=== PATIENT | female | born 1990 | race Caucasian/White ===

== ENCOUNTER 2024-04-28 15:57 | Emergency (ER) | payer OTHER, MEDICAID, SELFPAY ==
[2024-04-28] VITALS (11 sets, daily range): BP systolic 113–130; BP diastolic 80–97; PULSE 67–92; RESP 11–19; TEMP 36.1; O2SAT 97–100
--- NOTE | ~2024-04-28 | CT_ITS ---
CTA chest PE protocol Ordering provider: Gabrielle López MD History: 34 years Female with . CP; occas SOB; post ; elev dimer . Comparison: None. Technique: CT angiogram chest was performed following timed intravenous injection of contrast. Thin s lice axial images and reformatted coronal images were obtained. Three dimensional reformatted images of the chest were also obtained using a [employer] [place] workstation. . Automated exposure control and iterati ve reconstruction technique were employed. The dose-length product was 397.81 mGy-cm. 100 mL Omnipaqu e 350 were given IV. Findings: PULMONARY ARTERIES: No pulmonary embolus. VISUALIZED THORACIC INLET: Normal. MEDIASTINUM: Aorta/coronary arteries: Mild atheromatous disease. Heart/other: The heart is not enlarged. Minimal areas seen in the right ventricle and pulmonary kai ry. Lymph nodes: No mediastinal or hilar adenopathy. LUNGS: No pulmonary nodules or masses. No infiltrates or effusions. No pneumothorax. . Granuloma seen in the middle lobe. VISUALIZED UPPER ABDOMEN: Cholelithiasis. Benign calcifications of the spleen. Separate origin of the celiac and splenic arteries from the aorta. Otherwise, the visualized upper abdomen is normal. MUSCULOSKELETAL: Soft tissues: The superficial soft tissues are normal. Bones: Age appropriate degenerative changes of the spine. IMPRESSION: No pulmonary embolism. No acute cardiopulmonary pathology. Cholelithiasis. Reviewed, dictated and finalized at location A.
--- NOTE | ~2024-04-28 | XR_ITS ---
EXAMINATION: XR chest 2V DATE: 04/28/2024 16:26 INDICATION: Vomiting. Diaphoresis. TECHNIQUE: Frontal and lateral views of the chest were obtained. COMPARISON: None. FINDINGS: There is no pneumonia, pleural effusion, or pneumothorax. The heart size is normal. IMPRESSION: 1. No acute cardiopulmonary disease. Reviewed, dictated and finalized at location A.
--- NOTE | 2024-04-28 16:05 | ECG_ITS ---
Test Date: 2024-04-28 16:12:34 Measurements Intervals [place] Rate: 87 P: 54 OR: 144 QRS: 18 QRSD: 78 T: 6 QT: 355 QTc: 428 Interpretive Statements SINUS RHYTHM POSSIBLE LEFT ATRIAL ENLARGEMENT [-0.1mV P-WAVE IN V1/V2] NONSPECIFIC T-WAVE ABNORMALITY No previous ECG available for comparison Electronically Signed On 04-29-2024 13:24:14 CDT by Roman Cline M.D.
--- NOTE | 2024-04-28 16:14 | ED.NAVMDI ---
HPI - Nausea/Vomiting/Diarrhea General Chief complaint: Nausea/Vomiting/Diarrhea <KIERA Traylor Last Filed: 04/28/24 16:23> Stated complaint: N/V <KIERA Traylor Last Filed: 04/28/24 16:23> Time Seen by Provider: 04/28/24 16:14 <KIERA Traylor Last Filed: 04/28/24 16:23> Focused HPI: Patient is a 34 y/o female who presents to the ED via EMS with report of CP. Patient reports she was at home approx 30 minutes ago when she suddenly developed midsternal CP. States pain seemed to radiate down into her abdomen. She began feeling dizzy, sweaty, nauseous. She then had an episode of emesis. EMS was then called. Given zofran en route to the ED, nausea is improved currently. Does c/o slight CP still. Denies shortness of breath. Denies BLE pain and swelling. Patient is 8 weeks post . for twins. She saw Dr. Azul Sarah OBYUE/NICOLAS at [facility]. She had hx of severe preeclampsia. Still on nifedipine for BP. Does not take aspirin. GENERAL: Well-appearing, well-nourished, and in no acute distress. HEAD: Normocephalic, atraumatic. CHEST: Clear to auscultation. ?No respiratory distress. HEART: Regular rate and rhythm.? MSK: No chest wall tenderness ABD: No tenderness throughout abdomen. NEURO: ?Alert and oriented x3. Patient screened in triage and initial orders placed.? ?Additional care and disposition to be based upon?diagnostic testing and treatment. <KIERA Traylor Last Filed: 04/28/24 16:23> Source: patient <KIERA Traylor Last Filed: 04/28/24 16:23> Mode of arrival: EMS <KIERA Traylor Last Filed: 04/28/24 16:23> Limitations: no limitations <KIERA Traylor Last Filed: 04/28/24 16:23> History of Present Illness HPI Narrative: Agree with above the following additions: Rated the pain 7/10 severity but improved now. She notes occasional shortness of breath denies any around the time of this episode or currently. Marijuana use on social history. Subjective lower extremity edema. Patient felt like she might pass out but she did not have a syncopal episode. Patient denies any dysuria, hematuria urgency or frequency. <Gabrielle López MD - Last Filed: 04/29/24 16:34> Related Data Home medications: Home Medications Medication Instructions Recorded Confirmed loratadine 10 mg tablet 10 mg PO DAILY 04/28/24 04/28/24 nifedipine 30 mg tablet,extended 30 mg PO DAILY 04/28/24 04/28/24 release nifedipine 60 mg tablet,extended 60 mg PO HS 04/28/24 04/28/24 release sertraline 100 mg tablet (Zoloft) 150 mg PO DAILY 04/28/24 04/28/24 <Cat Conley PA-C - Last Filed: 04/28/24 16:23> Allergies/Adverse reactions: Allergies Allergy/AdvReac Type Severity Reaction Status Date / Time calamine Allergy Hives Verified 04/28/24 17:42 vancomycin Allergy Anaphylaxis Verified 04/28/24 17:42 codeine AdvReac Nausea and Verified 04/28/24 17:42 Vomiting <Cat Conley PA-C - Last Filed: 04/28/24 16:23> PMFSH Surgical History Surgical History: Surgical History (Updated 04/28/24 @ 21:01 by Gabrielle López MD) History of section 2023; twin males <Cat Conley PA-C - Last Filed: 04/28/24 16:23> Social History Social History: Social History (Updated 04/28/24 @ 21:01 by Gabrielle López MD) Social History: Participates in [employer] Living arrangements: with family Additional living arrangements comments: Twin sons Evonne and Johnson (born 2023). <Cat Conley PA-C - Last Filed: 04/28/24 16:23> Exam Narrative: GENERAL: Well-appearing, well-nourished, and in no acute distress. HEAD: Normocephalic, atraumatic. EYES: Non injected, non icteric ENT: Nares clear, no rhinorrhea or epistaxis. NECK: Supple. CHEST: Speaking in full sentences. No respiratory distress. HEART: Regular rate and
[2024-04-28 16:34] LABS: Basophils Absolute Auto 0.1 K/mm3 (0.0-0.1); Basophils Percent Auto 0.5 % (0.2-1.2); Eosinophils Absolute Auto 1.2 K/mm3 (0-0.3); Hematocrit 43.3 % (37.0-47.0); Hemoglobin 14.6 g/dL (12.0-15.0); Immature Granulocyte Absolute 0.09 K/mm3 (0.00-0.031); Immature Granulocyte Percent A 0.6 % (0-0.5); Lymphocytes Absolute Auto 3.82 K/mm3 (0.9-3.2); Lymphocytes Percent Auto 26.4 % (18.3-44.2); Mean Corpuscular HGB Conc 33.7 g/dl (32-36); Mean Corpuscular Hemoglobin 26.4 pg (26-34); Mean Corpuscular Volume 78.3 fl (80-100); Mean Platelet Volume 8.9 fl (7.4-10.4); Monocytes Absolute Auto 0.9 K/mm3 (0.1-0.6); Neutrophils Absolute Auto 8.5 K/mm3 (1.3-6.7); Neutrophils Percent Auto 58.5 % (45.5-73.1); Platelet Count Result 376 k/mm3 (150-375); Red Blood Count 5.53 M/mm3 (4.2-5.4); Red Cell Distribution Width 15.3 % (11.5-14.5); White Blood Count 14.5 K/mm3 (4.5-10.0)
[2024-04-28 16:46] LABS: Alanine Aminotransferase 32 U/L (6-35); Albumin Level 4.8 g/dL (3.5-5.1); Alkaline Phosphatase 102 U/L (38-126); Anion Gap 14 mmol/L (4-12); Aspartate Amino Transferase 35 U/L (14-36); Bilirubin,Total 0.5 mg/dL (0.2-1.3); Blood Urea Nitrogen 9 mg/dL (7-17); Calcium 9.7 mg/dL (8.4-10.2); Carbon Dioxide 19 mmol/L (22-30); Chloride 105 mmol/L (98-107); Estimated Glomerular Filt Rate > 60; Glucose 127 mg/dL (65-110); Lipase 532 U/L (23-300); Potassium 3.5 mmol/L (3.4-5.0); Sodium 138 mmol/L (137-145)
[2024-04-28 16:49] LABS: INR 0.9; Prothrombin Time 12.8 Seconds (11.1-14.7)
[2024-04-28 16:50] LABS: Partial Thromboplastin Time 26.4 Seconds (22.3-36.8)
[2024-04-28 16:56] LABS: NT Pro B Type Natriuretic Pept 42 pg/mL (19.9-100); Troponin I < 0.012 ng/mL (0.000-0.034)
[2024-04-28] MEDS: ASPIRIN 81 MG CHEWABLE TABLET 324 MG PO (18:16)
[2024-04-28] MEDS: BELLADONNA ALK/PHENOB ELIX 10 ML, MAG HYDROX/ALUMINUM HYD/SIMETH 30 ML, LIDOCAINE HCL 2... PO (18:17)
--- NOTE | 2024-04-28 18:40 | ECG_ITS ---
Test Date: 2024-04-28 18:44:07 Measurements Intervals [place] Rate: 74 P: 42 [place]: 143 QRS: 8 QRSD: 78 T: 6 QT: 392 QTc: 436 Interpretive Statements SINUS RHYTHM POSSIBLE LEFT ATRIAL ENLARGEMENT [-0.1mV P WAVE IN V1/V2] NONSPECIFIC T-WAVE ABNORMALITY Compared to ECG 04/28/2024 16:12:34 No significant changes Electronically Signed On 04-29-2024 13:26:30 CDT by Roman Cline M.D.
--- NOTE | 2024-04-28 19:13 | PC.NURSE ---
Report given to Carito CONTRERAS, all questions answered.
[2024-04-28 19:28] LABS: Troponin I < 0.012 ng/mL (0.000-0.034)
[2024-04-28] MEDS: SODIUM CHLORIDE 0.9% IV 1,000 ML 999 ML IV CONT (19:35)
[2024-04-28 19:52] LABS: Magnesium 1.8 mg/dL (1.6-2.3)
[2024-04-28 20:16] LABS: D Dimer 1.68 ug/mL (<0.48)
[2024-04-28 20:50] LABS: Appearance Urine Cloudy (Clear); Bacteria Urine 4+ /hpf; Bilirubin Urine 1+ (Negative); Blood Urine Negative (Negative); Color Urine Dark Yellow (Yellow); Glucose Urine UA Negative (Negative); Ketones Urine Trace mg/dL (Negative); Leukocyte Esterase Ur Negative LEU/UL (Negative); Mucus Urine Present /lpf; Need Manual Microscopic Reviewed; Nitrate Urine Negative (Negative); Non Pathogenic Casts 0-2; Protein Urine 1+ mg/dL (Negative); RBC Urine 0-2 /hpf (0-2); Squamous Epithelial Cell Urine Occasional /hpf (Few)
[2024-04-28 20:53] LABS: Add Urine Microscopic? YES; Specific Grav Ur 1.033 (1.001-1.035)
[2024-04-28 21:01] LABS: Pregnancy On Board Control Positive; Urine Pregnancy Test Negative
--- NOTE | 2024-04-28 22:23 | ECG_ITS ---
Test Date: 2024-04-28 22:27:01 Measurements Intervals [place] Rate: 63 P: 44 [place]: 145 QRS: 15 QRSD: 80 T: 13 QT: 449 QTc: 463 Interpretive Statements SINUS RHYTHM POSSIBLE LEFT ATRIAL ENLARGEMENT [-0.1mV P WAVE IN V1/V2] NONSPECIFIC T-WAVE ABNORMALITY Compared to ECG 04/28/2024 18:44:07 NO SIGNIFICANT CHANGES Electronically Signed On 04-29-2024 13:33:44 CDT by Roman Cline M.D.
[2024-04-28 22:46] LABS: Troponin I < 0.012 ng/mL (0.000-0.034)
== END 2024-04-28 23:22 | disposition home or self-care (01) ==
PROVIDERS: Emergency Medicine; Emergency Provider Student in an Organized Health Care Education/Training Program
DX: K80.20 Calculus of gallbladder without cholecystitis without obstruction (principal); R07.2 Precordial pain; D72.829 Elevated white blood cell count, unspecified; D75.839 Thrombocytosis, unspecified; R82.71 Bacteriuria; R74.8 Abnormal levels of other serum enzymes; R94.31 Abnormal electrocardiogram [ECG] [EKG]
CPT/HCPCS: 36415; 71046; 71275; 80053; 81001; 81025; 83690; 83735; 83880; 84484; 85025; 85380; 85610; 85730; 87086; 93005; 96360; 96361; 99284; A9270; J7030; Q9967